=== PATIENT | male | born 1950 | race Caucasian/White ===

== ENCOUNTER 2017-06-21 15:28 | Emergency (ER) | payer OTHER, MEDICARE ==
--- NOTE | 2017-06-21 15:30 | PDOC ---
History of Present Illness - General History Source: Patient Exam Limitations: No Limitations - History of Present Illness Initial Comments: 06/21/17 16:03 Patient is a 66 year old male with a significant past medical history of GERD and HTN who presents to the ED with complaint of tarry stool for 1 day. Patient notes that this AM he had a normal bowel movement, but this afternoon he noticed that his stool was dark in color. He reports generalized weakness. He states that he just returned from [facility] and he was taking altitude rx medication. He notes that while away he was experiencing discomfort in his chest and throat which is related to his GERD like symptoms. He denies any bright red blood in his stool. He denies any abdominal pain, nausea, vomiting, diarrhea or constipation. He denies any cp, SOB and dizziness. He states that his last endoscopy and colonoscopy was in 2009 and both studies were negative. PSH - hernia repair, prostate sx x3 SH - non smoker, beer drinker, no IVDU ALL - penicillin PCP - Dr. King GI - Dr. Delgado <Mar Mas - Last Filed: 06/21/17 16:03> - General History Source: Patient Exam Limitations: No Limitations <Janette Shore - Last Filed: 06/21/17 16:49> - General Chief Complaint: Rectal Bleed Stated Complaint: TARRY STOOL Past History <Mar Mas - Last Filed: 06/21/17 16:03> <Janette Shore - Last Filed: 06/21/17 16:49> - Past Medical History Allergies/Adverse Reactions: Allergies Allergy/AdvReac Type Severity Reaction Status Date / Time Penicillins Allergy Unknown Verified 06/21/17 16:07 Home Medications: Ambulatory Orders Lisinopril [Prinivil] 5 mg PO DAILY 06/21/17 Review of Systems - Review of Systems Able to Perform ROS?: Yes Comments:: 06/21/17 16:03 GENERAL/CONSTITUTIONAL: No: fever, chills, weakness, loss of appetite. HEAD, EYES, EARS, NOSE AND THROAT: No: change in vision, ear pain, discharge, sore throat, throat swelling. CARDIOVASCULAR: No: chest pain, lightheadedness, palpitations, syncope RESPIRATORY: No: cough, shortness of breath, wheezing, hemoptysis, stridor. GASTROINTESTINAL: Yes: tarry stool No: nausea, vomiting, abdominal cramping, diarrhea, rectal bleeding, constipation. GENITOURINARY: No: dysuria, hematuria, frequency, urgency, flank pain. MUSCULOSKELETAL: No: back pain, neck pain, joint pain, muscle swelling or pain SKIN: No: lesions, pallor, rash or easy bruising. NEUROLOGIC: No: headache, vertigo, paresthesias, weakness ENDOCRINE: No: unexplained weight gain or loss HEMATOLOGIC/LYMPHATIC: No: anemia, easy bleeding, swelling nodes <Mar Mas - Last Filed: 06/21/17 16:03> *Physical Exam - Vital Signs Last Vital Signs Temp Pulse Resp BP Pulse Ox 98 F 112 H 16 148/92 100 06/21/17 15:29 06/21/17 15:29 06/21/17 15:29 06/21/17 15:29 06/21/17 15:29 - Physical Exam Comments: 06/21/17 16:04 GENERAL: The patient is in no acute distress. HEAD: Normal with no signs of trauma. EYES: PERRLA, EOMI, sclera anicteric, conjunctiva clear. ENT: Ears normal, nares patent, oropharynx clear without exudates. Moist mucous membranes. NECK: Normal range of motion, supple without lymphadenopathy, JVD, or masses. LUNGS: Breath sounds equal, clear to auscultation bilaterally. No wheezes, and no crackles. HEART:Regular rate and rhythm, normal S1 and S2 without murmur, rub or gallop. ABDOMEN: Soft, nontender, normoactive bowel sounds. No guarding, no rebound. EXTREMITIES: Normal range of motion, no edema. No clubbing or cyanosis. No erythema, or tenderness. NEUROLOGICAL: Cranial nerves II through XII grossly intact. Normal speech. No focal neurological deficits. MUSCULOSKELETAL: Back nontender to palpation, no CVA tenderness SKIN: Warm, Dry, normal turgor, no rashes or lesions noted. <Mar Mas - Last Filed: 06/21/17 16:03> Heart Score/ECG Review #1 ECG reviewed & interpreted by me at: 16:46 06/21/17 16:46 Twelve-lead EKG was performed and reviewed by me. There is normal sinus rhythm with a normal rate of 97 bpm. Left axis deviation. The intervals are abnormal - pr: 190ms, QRS:144ms, QTc:485ms. There are no ST or T wave abnormalities. <Janette Shore - Last Filed: 06/21/17 16:49> ED Treatment Course - LABORATORY CBC & Chemistry Diagram: 06/21/17 16:03 06/21/17 16:03 <Janette Shore - Last Filed: 06/21/17 16:49> Medical Decision Making - Medical Decision Making 06/21/17 15:30 A portion of this note was documented by scribe services under my direction. I have reviewed the details of the note, within reason, and agree with the documentation with the following case summary and management plan written by me. Nursing documentation reviewed and incorporated into medical decision making This is a 66 yo M with a history of gastritis, prostate CA s/p resection Pt presents to the ER with a complaint of melena He returned from travel to the [facility], had been taking Diamox Pt reports that his stools have been normal up until just prior to arrival at the ER Pt presents to the ER with a single episode of dark colored stools No abdominal pain No nausea No vomiting The patient denies prior GI bleed Has had endoscopy and colonoscopy in the past 06/21/17 16:39 Laboratory Tests 06/21/17 06/21/17 16:03 16:03 WBC 7.4 Hgb 13.9 Hct 42.3 Plt Count 191 Neutrophils % 82.2 Lymphocytes % 7.2 L INR 1.16 06/21/17 16:47 Laboratory Tests 06/21/17 06/21/17 15:55 16:03 Sodium 140 Potassium 3.3 L Chloride 111 H Carbon Dioxide 25 BUN 19 H Creatinine 0.9 Random Glucose 108 H Creatine Kinase 31 L Pt stools dark Guiaic negative No evidence of anemia Pt to follow up with PMD and with his GI doctor in 2 - 3 days Return to the ER for persistent or worsening symptoms <Janette Shore - Last Filed: 06/21/17 16:49> *DC/Admit/Observation/Transfer - Attestations Scribe Attestion: 06/21/17 16:04 Documentation prepared by GABBI Evans, acting as manager medical writing for Janette Shore MD. <Mar Mas - Last Filed: 06/21/17 16:03> - Discharge Dispostion Admit: No <Janette Shore - Last Filed: 06/21/17 16:49> Diagnosis at time of Disposition: Dark stools - Discharge Dispostion Disposition: HOME Condition at time of disposition: Stable - Patient Instructions Printed Discharge Instructions: DI for Gastritis Additional Instructions: Thank you for coming in to the ER Please follow up with your primary physician and your medical language specialist within 1 week Please review your lab results Return to the ER for any other concerns or complaints
[2017-06-21 16:12] VITALS: BP 148/92; PULSE 112; TEMP 98; BMI 22.2
[2017-06-21 16:29] LABS: BASOPHIL 1.3 % (0-2.0); EOSINOPHIL 0.6 % (0-4.5); MCH 30.3 pg (25.7-33.7); MCHC 32.9 g/dl (32.0-35.9); MEAN CELL VOLUME 92.2 fl (80-96); MEAN PLT VOLUME 8.7 fl (7.5-11.1); NEUTROPHILS 82.2 % (42.8-82.8); PLATELET COUNT 191 K/MM3 (134-434); RDW 13.4 % (11.9-15.9); WHITE BLOOD COUNT 7.4 K/mm3 (4.0-10.8)
[2017-06-21 16:31] LABS: INR 1.16 (0.82-1.09); PROTHROMBIN TIME (PATIENT) 12.9 SEC (10.2-13.0)
[2017-06-21 16:36] LABS: CPK(DFH) 31 IU/L (38-174)
[2017-06-21 16:37] LABS: ALBUMIN 3.6 g/dl (3.5-5.0); ALK PHOS 41 U/L (32-92); ANION GAP 4 (8-16); BILIRUBIN,TOTAL 0.4 mg/dl (0.2-1.0); CALCIUM 8.8 mg/dl (8.4-10.2); CO2 25 mmol/L (22-28); CREATININE 0.9 mg/dl (0.6-1.3); GLUCOSE,RANDOM 108 mg/dl (74-106); SGOT/AST 14 U/L (10-42); SGPT/ALT 13 U/L (10-40); TOT PROT 7.1 g/dl (6.4-8.3)
[2017-06-21 16:59] LABS: TROPONIN I (DFP) < 0.03 ng/ml (0.03-0.50)
--- NOTE | 2017-06-22 13:00 | EKG ---
Test Reason : Blood Pressure : / mmHG Vent. Rate : 097 BPM Atrial Rate : 097 BPM P-R Int : 190 ms QRS Dur : 144 ms QT Int : 382 ms P-R-T Axes : 074 -34 046 degrees QTc Int : 485 ms SINUS RHYTHM WITH OCCASIONAL PREMATURE VENTRICULAR COMPLEXES LEFT AXIS DEVIATION RIGHT BUNDLE BRANCH BLOCK ABNORMAL ECG NO PREVIOUS ECGS AVAILABLE Confirmed by SENAIT ROQUE MD ([id number]) on 06/22/2017 1:00:31 PM Referred By: YUNIER RHODES Confirmed By:SENAIT ROQUE MD
== END 2017-06-21 17:10 | disposition home or self-care (01) ==
LOC: FER 15:28
DX: K92.1 Melena (principal); K21.9 Gastro-esophageal reflux disease without esophagitis; I10 Essential (primary) hypertension
CPT/HCPCS: 36415; 80053; 82272; 82550; 84484; 85025; 85610; 86850; 86900; 86901; 93005; 99283-25

== ENCOUNTER 2021-07-15 16:38 | Emergency (ER) | payer OTHER, MEDICARE ==
[2021-07-15 17:07] VITALS: BP 158/92; PULSE 87; TEMP 98.2; BMI 22.4
== END 2021-07-15 17:30 | disposition home or self-care (01) ==
LOC: FER 16:38
DX: R33.9 Retention of urine, unspecified (principal)
CPT/HCPCS: 99283-25

== ENCOUNTER 2022-03-02 17:23 | Emergency (ER) | payer OTHER, MEDICARE ==
[2022-03-02 17:39] VITALS: TEMP 98.3; BMI 21.4
[2022-03-02 18:44] LABS: ALBUMIN 4.1 g/dl (3.4-5.0); BILIRUBIN,TOTAL 0.8 mg/dl (0.2-1); CREATININE 0.8 mg/dl (0.55-1.3); TOT PROT 8.1 g/dl (6.4-8.2)
[2022-03-02 19:08] LABS: BASO % 0.7 % (0-2.0); EOS % 0.3 % (0-4.5); HEMATOCRIT 44.8 % (35.4-49); LYMPH % 17.1 % (8-40); MCH 30.9 pg (25.7-33.7); MCHC 33.6 g/dl (32.0-35.9); MEAN CELL VOLUME 92.1 fl (80-96); MEAN PLT VOLUME 8.9 fl (7.5-11.1); MONO % 7.8 % (3.8-10.2); NEUT % 74.1 % (42.8-82.8); PLATELET COUNT 194 10^3/uL (134-434); RBC 4.86 M/mm3 (4.00-5.60); RDW 13.7 % (11.9-15.9); WHITE BLOOD COUNT 6.4 K/mm3 (4.0-10.0)
[2022-03-02 20:08] VITALS: BP 160/90; PULSE 84
== END 2022-03-02 21:32 | disposition home or self-care (01) ==
LOC: FER 17:23
DX: F43.0 Acute stress reaction (principal); I10 Essential (primary) hypertension
CPT/HCPCS: 36415; 80053; 84484; 85025; 93005; 99284-25